=== PATIENT | female | born 1955 | race Caucasian/White ===

== ENCOUNTER 2020-12-31 00:53 | Day surgery (SDC) | payer OTHER, SELFPAY ==
[2020-12-16 13:38] VITALS: BMI 24.2
[2020-12-31 07:01] VITALS: BP 107/65; PULSE 74; RESP 16; TEMP 36.3; O2SAT 97
[2020-12-31] MEDS: LACTATED RINGERS 1,000 ML 150 ML IV CONT (07:12)
--- NOTE | 2020-12-31 07:19 | P.PNAN_ITS ---
Anes - Initial Pre Proc Eval Procedure: Operation Date: 12/31/20 08:30 Proposed Procedures p Screening Colonoscopy - Suleman Pena MD Date/Time: 12/31/20 07:19 Surgeon: Suleman Pena MD Pre Op Diagnosis: neoplasm screening Patient Data Age: 65 Gender: F Height: 1.57 m Weight: 60.4 kg Last Vital Signs Temp 36.3 C L 12/31/20 07:01 Pulse 74 12/31/20 07:01 Resp 16 12/31/20 07:01 BP 107/65 12/31/20 07:01 Pulse Ox 97 12/31/20 07:01 Allergies Allergy/AdvReac Type Severity Reaction Status Date / Time No Known Allergies Allergy Verified 12/31/20 07:00 Home Medications Medication Instructions Recorded Confirmed Type sertraline 100 mg PO DAILY 03/03/19 12/16/20 History trazodone 50 mg PO DAILY 03/03/19 12/16/20 History lactobacillus combination no.8 3 cell PO DAILY 12/16/20 12/16/20 History [Adult Probiotic] psyllium husk [Fiber (psyllium 0.4 g PO DAILY 12/16/20 12/16/20 History husk)] Patient hx anesthesia problems: none Family hx anesthesia problems: none Results Review: All pre-operative results and documents have been reviewed as part of the pre-operative evaluation. [facility] Past Medical History Medical History (Updated 12/31/20 @ 07:20 by Jamison Laughlin MD) Anxiety Depression Surgical History Surgical History (Updated 03/03/19 @ 10:23 by TIFFANI Kramer) H/O: Hx of cholecystectomy Social History Social History (Updated 03/03/19 @ 10:23 by TIFFANI Kramer) Smoking status: Never smoker Alcohol intake: never Substance use: never Substance use type: does not use Living arrangements: with family Gender identity (if verbalized by the patient): Female Spiritual care concerns: No Anes - Eval Final PreProcedure Day of Procedure 12/31/20 07:19 Patient weight: normal Heart: regular rate and rhythm Lungs: clear to auscultation and normal air movement Airway: Mallampati scale class II Neurological: alert and oriented Last oral intake: >/= 8 hours ASA classification: II Emergent: no Anesthetic plan: proceed Anesthesia type and monitoring: general GIVS Results Review: All pre-operative results and documents have been reviewed as part of the pre-operative evaluation. Informed Consent: The patient's anesthetic plan and its attendant risks and benefits were discussed with the patient/family/POA. Questions were solicited and answers provided to the satisfaction of the patient/family/POA.
--- NOTE | 2020-12-31 07:49 | WPDGICN ---
Assessment and Plan Assessment and plan (1) Encounter for screening colonoscopy: Code(s): Z12.11 - Encounter for screening for malignant neoplasm of colon Status: Acute Assessment and Plan: Patient appears to be at average risk for colon polyps. Screening colonoscopy will be performed further recommendations will be given after endoscopy. (2) Diarrhea: Code(s): R19.7 - Diarrhea, unspecified Status: Acute Assessment and Plan: Patient is diarrhea which could be secondary to irritable bowel syndrome. She has not had any response to probiotics or fiber supplementation we may wish to try Questran as she has previously had cholecystectomy and describes trying medications several years ago similar to this which may have worked. GI Consult Note Consult date/time: 12/31/20 07:49 HPI: Kristine De La Torre is a 65 year old female Presents for screening colonoscopy. Patient reports that her current weight appetite bowel movements are normal. Family history is noncontributory. Should patient reports prior colonoscopy more than 10 years ago. She states that she had a cholecystectomy many years ago has had vague diarrhea stools for several weeks. Currently trying Metamucil with no change in symptoms. She has also tried probiotics with no improvement. Review of Systems Review of Systems: All systems reviewed & are unremarkable except as noted in HPI and below PMFSH Past Medical History Medical History (Updated 12/31/20 @ 07:51 by Suleman Pena MD) Anxiety Depression Surgical History Surgical History (Updated 03/03/19 @ 10:23 by TIFFANI Kramer) H/O: Hx of cholecystectomy Social History Social History (Updated 03/03/19 @ 10:23 by TIFFANI Kramer) Smoking status: Never smoker Alcohol intake: never Substance use: never Substance use type: does not use Living arrangements: with family Gender identity (if verbalized by the patient): Female Spiritual care concerns: No Meds Home Medications and Allergies Home Medications Medication Instructions Recorded Confirmed Type sertraline 100 mg PO DAILY 03/03/19 12/16/20 History trazodone 50 mg PO DAILY 03/03/19 12/16/20 History lactobacillus combination no.8 3 cell PO DAILY 12/16/20 12/16/20 History [Adult Probiotic] psyllium husk [Fiber (psyllium 0.4 g PO DAILY 12/16/20 12/16/20 History husk)] Allergies Allergy/AdvReac Type Severity Reaction Status Date / Time No Known Allergies Allergy Verified 12/31/20 07:00 Vital Signs Vital Signs - 24 hr 12/31/20 07:01 Temperature 97.4 F L Pulse Rate 74 Respiratory Rate 16 Blood Pressure 107/65 Pulse Oximetry 97 Exam Narrative: Physical exam reveals patient to be alert. Vital signs are stable. HEENT exam is unremarkable. Patient is anicteric. Lungs are clear to auscultation and percussion. Heart is without murmur or extra sounds. Abdominal exam bowel sounds are present soft nontender with no hepatosplenomegaly. Digital external rectal exam is normal.
[2020-12-31 08:18] VITALS: BP 72/42; PULSE 68; RESP 18; O2SAT 96
[2020-12-31 08:28] VITALS: BP 92/49; PULSE 73; RESP 24; O2SAT 99
[2020-12-31 08:38] VITALS: BP 100/75; PULSE 62; RESP 20; O2SAT 99
== END 2020-12-31 08:47 | disposition home or self-care (01) ==
PROVIDERS: PCP Internal Medicine; Visit Provider Internal Medicine Gastroenterology
PROC: 0DJD8ZZ Inspection of Lower Intestinal Tract, Via Natural or Artificial Opening Endoscopic (ICD-10-PCS; CPT 45378; principal; 2020-12-31 08:30)
DX: Z12.11 Encounter for screening for malignant neoplasm of colon (principal); K64.8 Other hemorrhoids; K57.30 Diverticulosis of large intestine without perforation or abscess without bleeding; R19.7 Diarrhea, unspecified; F41.8 Other specified anxiety disorders
CPT/HCPCS: 45378; J2704; J7120

== ENCOUNTER 2022-07-12 09:26 | Emergency (ER) | payer OTHER, SELFPAY ==
[2022-07-12 09:36] VITALS: BP 110/71; PULSE 64; RESP 20; TEMP 36.6; O2SAT 100
--- NOTE | 2022-07-12 09:55 | ED.ABDPAIN ---
HPI - Abdominal Pain General Chief Complaint: Abdominal Pain Stated Complaint: Abdominal Pain Source: patient and RN notes reviewed History of Present Illness HPI narrative: 66-year-old female presents to urgent care with complaints of left lower quadrant pain that started this morning. Patient states her pain started after she had breakfast. Patient has vomited 3 times. Denies any fevers, chills, back pain, dysuria, diarrhea, or constipation. Patient does report a history of diverticulosis. Some parts of this dictation were generated by voice recognition software and may contain typographical and/or grammatical inaccuracies. Related Data Allergies Allergy/AdvReac Type Severity Reaction Status Date / Time lactose AdvReac Unknown Unknown Verified 07/12/22 10:01 Review of Systems Review of Systems: Pertinent positives and pertinent negatives per HPI. PMFSH Past Medical History Medical History Anxiety Depression Insomnia Surgical History Surgical History H/O: Hx of cholecystectomy Family History Family History Other Acute myocardial infarction Ovarian cancer Social History Social History (Updated 05/05/22 @ 13:09 by Ester Castro) Smoking status: Never smoker Alcohol intake: current Alcohol use details: yearly-rare Substance use: never Substance use type: does not use Lack of Transportation: No Lack of Food: Never True Current Housing: I Have Housing Concerned About Future Housing: No Difficulty Paying Gas/Electric Bills: No Difficulty Paying for Meds: No Currently Unemployed: No Difficulty w/ Childcare or Family Care: No Living arrangements: with family Occupation/Education: occupation Gender identity (if verbalized by the patient): Female Sexual Orientation (if Verbalized by the Patient): Straight or Heterosexual Spiritual care concerns: No Comments At the time of my signature, I reviewed and agree with the nursing past medical, surgical, social, and family history. There is no relevant family history pertinent to the patient complaint. Exam Narrative: GENERAL: This is a well-nourished, well-developed patient, in no apparent distress. HEAD: normocephalic, atraumatic. EYES: PERRL. Sclera clear/white. Vision is grossly intact. EARS: External ears normal, auditory canals clear and without drainage, TMs normal without perforation. Hearing grossly intact. NOSE: External nose normal with no obvious nasal discharge, nares without redness, no rhinorrhea. THROAT: Mucous membranes moist, posterior pharynx clear. NECK: Neck supple, non-tender without lymphadenopathy, masses or thyromegaly. CARDIOVASCULAR: Regular rate and rhythm without murmurs, gallops, or rubs. RESPIRATORY: Clear to auscultation. Breath sounds equal bilaterally. No wheezes, rales, or rhonchi. GASTROINTESTINAL: Abdomen soft, tender to LLQ SKIN: warm, intact with no suspicious lesions or rash, good texture and turgor. NEURO: awake, alert, and oriented to person, place and time. There were no obvious focal neurologic abnormalities. EXTREMITIES: No clubbing, cyanosis, or edema. No joint tenderness, effusion, or edema noted. BACK: Nontender without deformity or crepitance. No flank tenderness. Course Course Level of Care: Express Care Visit Vital Signs Vital signs: Vital Signs Temperature 97.8 F 07/12/22 09:36 Pulse Rate 64 07/12/22 09:36 Respiratory Rate 20 07/12/22 09:36 Blood Pressure 110/71 07/12/22 09:36 Pulse Oximetry 100 07/12/22 09:36 Oxygen Delivery Room Air 07/12/22 09:36 Temperature 97.8 F 07/12/22 09:36 Pulse Rate 64 07/12/22 09:36 Respiratory Rate 20 07/12/22 09:36 Blood Pressure 110/71 07/12/22 09:36 Pulse Oximetry 100 07/12/22 09:36 Oxygen Delivery Room Air 07/12/22 09:36 re
== END 2022-07-12 10:04 | disposition short-term general hospital (02) ==
PROVIDERS: Emergency Provider Nurse Practitioner Family; PCP Physician Assistant Medical
DX: R10.32 Left lower quadrant pain (principal); F41.9 Anxiety disorder, unspecified; F32.A Depression, unspecified
CPT/HCPCS: 99212; G0463

== ENCOUNTER → 2022-09-02 14:45 | Outpatient (CLI) | payer OTHER, SELFPAY ==
--- NOTE | ~2022-09-02 | MM_ITS ---
EXAMINATION: MM screening jocelin BI w delvin HISTORY: Screening mammogram TECHNIQUE: Craniocaudal and mediolateral oblique 3-D tomosynthesis images were obtained and synthetic 2-D images were generated. CAD analysis was submitted and interpreted. COMPARISON: 03/29/2019 bilateral screening mammogram 06/25/2015 diagnostic left mammogram 06/18/2015 bilateral screening mammogram BREAST PARENCHYMAL COMPOSITION: There are scattered areas of fibroglandular density. FINDINGS: There is no evidence of suspicious mass, calcification, or architectural distortion to sugg est malignancy in either breast. There has been no suspicious interval change. IMPRESSION: 1. No mammographic evidence of malignancy. 2. Recommend routine screening mammography in one year. BI-RADS Category 1: Negative Reviewed, dictated and finalized at location A.
== END ==
PROVIDERS: PCP Physician Assistant Medical; Visit Provider Physician Assistant Medical
DX: Z12.31 Encounter for screening mammogram for malignant neoplasm of breast (principal)
CPT/HCPCS: 77063; 77067

== ENCOUNTER 2023-11-30 09:14 | Emergency (ER) | payer MEDICARE, SELFPAY ==
[2023-11-30 09:21] VITALS: BP 111/70; PULSE 87; RESP 16; TEMP 37.2; O2SAT 100
--- NOTE | 2023-11-30 09:48 | ED.URI ---
HPI - URI/Sore Throat General Chief Complaint: Upper Respiratory Infection Stated Complaint: Sore Throat/Runny Nose/Fever Time Seen by Provider: 11/30/23 09:48 Source: patient and RN notes reviewed Mode of arrival: ambulatory Limitations: no limitations History of Present Illness HPI Narrative: 68-year-old female presents concern for one-week history of general malaise, nasal congestion, runny nose, sinus pressure and sore throat. Reports she has taken [id number] medications without relief. MD elicited complaint: cough, nasal congestion and sinus pain Related Data Allergies Allergy/AdvReac Type Severity Reaction Status Date / Time lactose AdvReac Unknown Diarrhea Verified 08/25/22 13:05 Review of Systems Review of Systems: CONSTITUTIONAL: Reports malaise. Denies chills, sweats, or fever. EYES: Denies visual changes, redness, or discharge. ENT: Reports rhinorrhea, congestion, sinus pain, and sore throat. CARDIOVASCULAR: Denies chest pain, palpitations, or edema. RESPIRATORY: Reports occasional cough. Denies dyspnea. GASTROINTESTINAL: Denies abdominal pain, nausea, vomiting, diarrhea SKIN: Denies rash or itching. MUSCULOSKELETAL: Denies myalgia. NEUROLOGIC: Reports headache. All systems reviewed & are unremarkable except as noted in HPI and below PMFSH Past Medical History Medical History Anxiety Depression Insomnia Surgical History Surgical History H/O: Hx of cholecystectomy Family History Family History Other Acute myocardial infarction Ovarian cancer Social History Social History Smoking status: Never smoker Alcohol intake: current Alcohol use details: yearly-rare Substance use: never Substance use type: does not use Lack of Transportation: No Lack of Food: Never True Current Housing: I Have Housing Concerned About Future Housing: No Difficulty Paying Gas/Electric Bills: No Difficulty Paying for Meds: No Currently Unemployed: No Difficulty w/ Childcare or Family Care: No Living arrangements: with family Occupation/Education: occupation Gender identity (if verbalized by the patient): Female Sexual Orientation (if Verbalized by the Patient): Straight or Heterosexual Spiritual care concerns: No Comments At time of signature, agree with nursing past medical, surgical, social and family history. There is no relevant family history pertinent to the presenting complaint Exam Narrative: GENERAL: Well-appearing, well-nourished, and in no acute distress. HEAD: Normocephalic EYES: PERRLA, conjunctivae clear ENT: Nares clear, turbinates edematous and erythematous. Mucous membranes moist. TM pearly zazueta with dull light reflex bilaterally; no tragal tenderness. Oropharynx erythematous without lesions. Tonsils not enlarged and without exudate, no drooling, no hoarseness, no trismus, uvula midline. NECK: Supple. No lymphadenopathy CHEST: Clear to auscultation, breath sounds equal. No wheezing, rhonchi, rales, or stridor. No respiratory distress, speaks in full sentences. HEART: Regular rate and rhythm. No murmur heard. SKIN: Warm, dry, no rash. NEURO: Alert and oriented x3. PSYCH: Normal mood and affect Course Course Emergency Course: Patient is aware of diagnosis, understands and agrees to treatment plan. Anticipatory guidance given. Patient agrees to follow-up as directed and is aware of reasons to seek care at the emergency department. Portions of this record may have been created with voice recognition software Level of Care: Express Care Visit Vital Signs Vital signs: Vital Signs Temperature 98.9 F 11/30/23 09:21 Pulse Rate 87 11/30/23 09:21 Respiratory Rate 16 11/30/23 09:21 Blood Pressure 111/70 11/30/23 09:21
== END 2023-11-30 10:02 | disposition home or self-care (01) ==
PROVIDERS: Emergency Provider Nurse Practitioner
DX: J32.9 Chronic sinusitis, unspecified (principal); F41.8 Other specified anxiety disorders
CPT/HCPCS: 99213; G0463